=== PATIENT | female | born 1950 | race Caucasian/White ===

== ENCOUNTER → 2016-12-12 | Outpatient (CLI) | payer BC ==
[~2016-12-12] MED LIST: ALENDRONATE SOD70 M1 PO; CLARITIN10 MG PO; LOSARTAN POTASS1 TA4 PO; LOSARTAN POTASS1 TA6 PO; MEDROL DOSEPAK4 MG PO; MELOXICAM15 MG PO; MOTRIN800 MG PO; PLAQUENIL200 MG PO; SIMVASTATIN40 MG PO; TOPROL XL50 M1 PO
[2016-12-12 07:17] LABS: BASO # 0.1 10*3/uL (0.0-0.1); BASO % 0.6 % (0.0-1.0); EOS # 0.3 10*3/uL (0.0-0.4); EOS % 3.6 % (1.0-4.0); HEMATOCRIT 39.4 % (37.0-47.0); HEMOGLOBIN 13.4 g/dl (12.0-16.0); IG # 0.1 10*3/uL (0.0-0.1); LYMPH # 1.9 10*3/uL (1.3-4.4); LYMPH % 24.3 % (27.0-41.0); MEAN CELL VOLUME 91.2 fl (81.0-99.0); MEAN PLATELET VOLUME 8.7 fl (9.6-12.3); MONO # 0.6 10*3/uL (0.1-1.0); MONO % 7.6 % (3.0-9.0); NEUT % 63.3 % (47.0-73.0); PLATELET COUNT AUTOMATED 315 10*3/uL (130-400); RED BLOOD COUNT 4.32 10*6/uL (4.10-5.10); RED CELL DISTRI WIDTH 12.6 % (0-14.5)
[2016-12-12 07:52] LABS: ALBUMIN 3.6 gm/dl (3.1-4.5); ALKALINE PHOSPHATASE 67 U/L (45-117); BILIRUBIN, TOTAL 0.5 mg/dl (0.2-1.0); BUN 8 mg/dl (7-24); CARBON DIOXIDE 29 mmol/L (21-32); CHLORIDE 102 mmol/L (98-107); CHOLESTEROL 166 mg/dL (<200); EST GLOM FILT AFRICAN AMERICAN > 60 ml/min; GLUCOSE 88 mg/dL (65-99); HDL CHOLESTEROL 77 mg/dl (40-60); LDL CHOLESTEROL 62 mg/dL (9-159); POTASSIUM 3.6 mmol/L (3.5-5.1); SGOT/AST 24 IU/L (3-35); SGPT/ALT 35 U/L (12-78); SODIUM 138 mmol/L (136-145); TOTAL PROTEIN 7.4 gm/dL (6.4-8.2); TRIGLYCERIDES 135 mg/dl (<150); VLDL CHOLESTEROL 27 mg/dL (6-40)
== END | disposition home or self-care (01) ==
LOC: LAB 07:01
PROVIDERS: Family Medicine
DX: J90 Pleural effusion, not elsewhere classified (principal); R91.8 Other nonspecific abnormal finding of lung field; M17.11 Unilateral primary osteoarthritis, right knee; M25.461 Effusion, right knee; E78.5 Hyperlipidemia, unspecified; M81.0 Age-related osteoporosis without current pathological fracture; I10 Essential (primary) hypertension; M47.894 Other spondylosis, thoracic region; Q25.46 Tortuous aortic arch; M76.9 Unspecified enthesopathy, lower limb, excluding foot

== ENCOUNTER 2016-12-27 14:41 | Inpatient (IN) | payer BC, MEDICARE ==
[~2016-12-27] VITALS: Ht 157.5 cm; Wt 87.3 kg
--- NOTE | ~2016-12-27 | DS ---
[place], [place] DISCHARGE SUMMARY NAME: BEN HILTON [facility] #: [id number] UNIT #: [id number] ROOM: 427 DOCTOR: TIM RAMOS MD BIRTHDATE: [birth year] DOS: 12/29/2016 HOSPITAL COURSE: The patient has been admitted to the hospital with chronic cough, shortness of breath, edema of the leg, ASHD, hypertension, hyperlipidemia, osteoporosis, osteoarthritis, lymphopenia, elevated C-reactive protein, hyponatremia, hypokalemia, hypochloremia, and hyperglycemia. The patient is feeling much better. She says she is not having much cough now and she denies any difficulty in breathing. She is ambulating good. There is no chest pain, no difficulty in breathing. The patient had an ultrasound of the thyroid done yesterday, which showed borderline enlarged heterogeneously thyroid gland without evidence of discrete nodules or calcification. Her blood pressure is 170/64, pulse ____, respiration 20, and temperature 97.3. The patient was treated with her home medications and she received hydrocortisone 10 mg twice daily, ____ with albuterol every 6 hours p.r.n., ____ sodium 1 g daily IV, and azithromycin 500 mg IV twice daily. The patient ____. She has been given antibiotic to take at home, Levaquin 500 mg daily and ____ 3 times daily and she will continue taking her home medications. I will see her in the office next week. TIM RAMOS MD CM:AZEEM [id number] TIM RAMOS MD 12/29/16 1118 interface
--- NOTE | ~2016-12-27 | PR ---
[place], [place] PROGRESS NOTE NAME: BEN HILTON [facility] #: [id number] UNIT #: [id number] ROOM: 427 DOCTOR: TIM RAMOS MD BIRTHDATE: [birth year] DOS: 12/28/2016 SUBJECTIVE: This is a patient who has been admitted to hospital with chronic cough, which she is having for the last 8 months, has been treated by various antibiotics and other things. Her chest x-ray showed slight pneumonic infiltration before, which was clear later on and she does not bring any sputum. She is not having any chest pain, no difficulty in breathing, just dry cough, which is quite irritating to her and she came to the Emergency Department where she had a chest x-ray done, which did not show any abnormality and she had CT of the chest done, which showed no cardiopulmonary pathology, except some enlargement of the thyroid gland. The patient has past history of hypertension, hyperlipidemia, osteoarthritis, osteoporosis and sigmoid polyp. She has history of cataract surgery done, tubal ligation, tonsillectomy and breast biopsy. The patient's troponin level on 2 different occasions is normal and CBC today showed white count 10.3, hemoglobin 11.7, hematocrit 33.7. Basic metabolic profile is showing calcium 8.4. Other values are normal. Cholesterol is 129, HDL 63, which is good. LDL and VLDL ____ triglycerides are elevated to 155, not too much. Hemoglobin A1c is 5.9. Vitamin B12 of 431, folic acid 22.9 and vitamin D is 76.8. OBJECTIVE: VITAL SIGNS: Her blood pressure is 125/68, pulse is 99, respirations 20, temperature 98.5. CHEST: Clear. HEART: Regular. ABDOMEN: Soft. GENERAL: The patient is not in any acute distress. TIM RAMOS MD CM:PNTRANS [id number] TIM RAMOS MD 12/29/16 0203 interface
[2016-12-27 14:41] VITALS: BP 142/81
[~2016-12-27 14:41] MED LIST changes: +PRAVACHOL40 MG PO; -SIMVASTATIN40 MG PO
[2016-12-27 15:15] LABS: BASO # 0.1 10*3/uL (0.0-0.1); BASO % 0.7 % (0.0-1.0); EOS # 0.4 10*3/uL (0.0-0.4); EOS % 3.9 % (1.0-4.0); HEMATOCRIT 35.5 % (37.0-47.0); HEMOGLOBIN 12.5 g/dl (12.0-16.0); IG # 0.1 10*3/uL (0.0-0.1); LYMPH # 2.4 10*3/uL (1.3-4.4); LYMPH % 26.5 % (27.0-41.0); MEAN CELL VOLUME 90.8 fl (81.0-99.0); MEAN CORPUSCULAR HGB CONC 35.2 g/dl (33.0-37.0); MEAN PLATELET VOLUME 9.1 fl (9.6-12.3); MONO # 0.7 10*3/uL (0.1-1.0); MONO % 7.7 % (3.0-9.0); NEUT # 5.5 10*3/uL (2.3-7.9); NEUT % 60.5 % (47.0-73.0); PLATELET COUNT AUTOMATED 313 10*3/uL (130-400); RED BLOOD COUNT 3.91 10*6/uL (4.10-5.10); RED CELL DISTRI WIDTH 12.6 % (0-14.5)
[2016-12-27 15:24] LABS: PROTHROMBIN TIME 10.1 SECONDS (9.0-12.4)
[2016-12-27 15:27] LABS: C-REACTIVE PROTEIN 0.96 MG/DL (0-0.3)
[2016-12-27 15:33] LABS: ALBUMIN 3.8 gm/dl (3.1-4.5); ALKALINE PHOSPHATASE 81 U/L (45-117); BILIRUBIN, TOTAL 0.4 mg/dl (0.2-1.0); BUN 8 mg/dl (7-24); CARBON DIOXIDE 27 mmol/L (21-32); CHLORIDE 94 mmol/L (98-107); EST GLOM FILT AFRICAN AMERICAN > 60 ml/min; GLUCOSE 108 mg/dL (65-99); MAGNESIUM 1.6 mg/dL (1.5-2.1); POTASSIUM 3.3 mmol/L (3.5-5.1); SGOT/AST 29 IU/L (3-35); SGPT/ALT 35 U/L (12-78); SODIUM 132 mmol/L (136-145); TOTAL PROTEIN 7.2 gm/dL (6.4-8.2)
[2016-12-27 15:34] LABS: TROPONIN I < 0.015 ng/ml (<0.045)
[2016-12-27 16:56] VITALS: BP 138/76
[2016-12-27] MEDS ORDERED: AMLODIPINE BESY1 TAB PO (17:42)
[2016-12-27] MEDS ORDERED: FEXOFENADINE H180 M1 PO (17:43)
[2016-12-27] MEDS ORDERED: CETIRIZINE10 MG PO (17:43)
[2016-12-27] MEDS ORDERED: ASPIRIN CHEWABL81 MG PO (17:44)
[2016-12-27] MEDS ORDERED: CALCIUM 600600 M2 PO (17:44)
[2016-12-27] MEDS ORDERED: PRILOSEC20 M1 PO (17:45)
[2016-12-27] MEDS ORDERED: FISH OIL 1,001000 MG PO (17:45)
[2016-12-27] MEDS ORDERED: MULTI VITAMINS1 TAB PO (17:45)
[2016-12-27 18:00] VITALS: BP 131/68
[2016-12-27 20:00] VITALS: BP 119/65
[2016-12-28] VITALS: BP 111/49
[2016-12-28 05:56] LABS: BASO # 0.1 10*3/uL (0.0-0.1); BASO % 0.7 % (0.0-1.0); EOS # 0.2 10*3/uL (0.0-0.4); HEMATOCRIT 33.7 % (37.0-47.0); HEMOGLOBIN 11.5 g/dl (12.0-16.0); LYMPH # 2.2 10*3/uL (1.3-4.4); LYMPH % 29.6 % (27.0-41.0); MEAN CELL VOLUME 92.3 fl (81.0-99.0); MEAN CORPUSCULAR HGB 31.5 pg (27.0-31.0); MEAN CORPUSCULAR HGB CONC 34.1 g/dl (33.0-37.0); MEAN PLATELET VOLUME 9.3 fl (9.6-12.3); MONO # 0.6 10*3/uL (0.1-1.0); MONO % 7.8 % (3.0-9.0); NEUT # 4.3 10*3/uL (2.3-7.9); NEUT % 58.4 % (47.0-73.0); PLATELET COUNT AUTOMATED 268 10*3/uL (130-400); RED BLOOD COUNT 3.65 10*6/uL (4.10-5.10); RED CELL DISTRI WIDTH 12.7 % (0-14.5); WHITE BLOOD COUNT 7.3 10*3/uL (4.8-10.8)
[2016-12-28 06:21] LABS: BUN 9 mg/dl (7-24); CARBON DIOXIDE 28 mmol/L (21-32); CHLORIDE 102 mmol/L (98-107); CHOLESTEROL 129 mg/dL (<200); EST GLOM FILT AFRICAN AMERICAN > 60 ml/min; GLUCOSE 98 mg/dL (65-99); HDL CHOLESTEROL 63 mg/dl (40-60); LDL CHOLESTEROL 35 mg/dL (9-159); MAGNESIUM 1.6 mg/dL (1.5-2.1); PHOSPHOROUS 2.5 mg/dL (2.5-4.9); POTASSIUM 3.5 mmol/L (3.5-5.1); SODIUM 139 mmol/L (136-145); TRIGLYCERIDES 155 mg/dl (<150); VLDL CHOLESTEROL 31 mg/dL (6-40)
[2016-12-28 06:52] LABS: HEMOGLOBIN A1c 5.9 % (4.8-5.6)
[2016-12-28 08:00] VITALS: BP 125/68
[2016-12-28 09:29] LABS: FOLIC ACID 22.92 ng/mL (>5.38); VITAMIN D, 25-HYDROXY 76.8 ng/mL (30-100)
[2016-12-28 12:00] VITALS: BP 135/72
[2016-12-28 16:00] VITALS: BP 129/86
[2016-12-28 20:00] VITALS: BP 119/56
[2016-12-29] VITALS: BP 117/64
== END 2016-12-29 09:10 | disposition home or self-care (01) | DRG 644 ==
LOC: ED 14:41 → EDHOLD 16:24 → 4E 16:24
PROVIDERS: Emergency Medicine; Internal Medicine
DX: E04.9 Nontoxic goiter, unspecified (principal); E87.1 Hypo-osmolality and hyponatremia; E87.8 Other disorders of electrolyte and fluid balance, not elsewhere classified; I10 Essential (primary) hypertension; I25.10 Atherosclerotic heart disease of native coronary artery without angina pectoris; E78.5 Hyperlipidemia, unspecified; M19.90 Unspecified osteoarthritis, unspecified site; M81.0 Age-related osteoporosis without current pathological fracture; D72.810 Lymphocytopenia; E87.6 Hypokalemia; R73.9 Hyperglycemia, unspecified; R60.0 Localized edema; Z96.1 Presence of intraocular lens; Z82.49 Family history of ischemic heart disease and other diseases of the circulatory system; Z79.899 Other long term (current) drug therapy; Z90.49 Acquired absence of other specified parts of digestive tract; Z98.41 Cataract extraction status, right eye; Z83.3 Family history of diabetes mellitus; Z82.3 Family history of stroke; Z81.1 Family history of alcohol abuse and dependence

== ENCOUNTER → 2017-01-09 | Outpatient (CLI) | payer OTHER ==
[~2017-01-09] MED LIST changes: +AMLODIPINE BESY1 TAB PO; +ASPIRIN CHEWABL81 MG PO; +CALCIUM 600600 M2 PO; +CETIRIZINE10 MG PO; +FEXOFENADINE H180 M1 PO; +FISH OIL 1,001000 MG PO; +MULTI VITAMINS1 TAB PO; +PRILOSEC20 M1 PO
--- NOTE | ~2017-01-09 | PF ---
[place], [place] PULMONARY FUNCTION TEST NAME: BEN HILTON UNIT #: [id number] ROOM: DOCTOR: ELMO ALDRICH MD,SAMUEL BIRTHDATE: [birth year] DOS: 01/09/2017 REQUESTING PHYSICIAN: Macarena Loja DO. HISTORY: The patient is noted as 67-year-old female, height of 62 inches, weight 187 pounds. The patient reported symptoms of nonproductive cough with rare wheezing and dyspnea with exertion. The testing was done on the patient for assessment of possibly reactive airway disease after exposure. SPIROMETRY: The FVC was recorded at 2.30 liters, 81% predicted value normal. FEV1 was noted at 1.79 liters, 84% predicted value. The ratio of FEV1/FVC was recorded 78%. There was no significant postbronchodilator improvement noted. Flow volume loop for the patient was noted as mild obstructive airway pattern. The patient's lung volumes, thoracic gas volume recorded as 57%, residual volume of 55%, total lung capacity of 69%. The lung volume for this patient was noted with evidence of moderate restrictive lung disease of unclear etiology. The patient's lung diffusion recorded 55% without correction of carbon monoxide hemoglobin value. The patient's airway resistance and passive conductance were noted normal. FINAL IMPRESSION: 1. Evidence of moderate restrictive lung disease to be correlated to the patient's clinical history and with the radiology data. 2. Moderate reduction of the lung diffusion was also noted to be correlated to the patient's hemoglobin value and clinical history and radiology data as well. SAMUEL BORREGO MD CM:PFREPORT:PULMONARY FUNCTION TEST [id number] SAMUEL ALDRICH MD
== END | disposition home or self-care (01) ==
LOC: CP 07:50
DX: J45.909 Unspecified asthma, uncomplicated (principal)

== ENCOUNTER → 2017-01-14 | Outpatient (CLI) | payer BC ==
[~2017-01-14] MED LIST changes: +BREO ELLIPTA 21 EACH PO; +VIT D3 PO
== END | disposition home or self-care (01) ==
LOC: CARD 04:37
DX: R07.2 Precordial pain (principal)

== ENCOUNTER → 2017-04-11 | Outpatient (CLI) | payer BC | END | disposition home or self-care (01) | LOC: US 07:40 | DX: E04.9 Nontoxic goiter, unspecified (principal); R05 Cough ==

== ENCOUNTER → 2017-09-22 | Outpatient (CLI) | payer BC | END | disposition home or self-care (01) | LOC: ORTHO 00:19 | DX: M17.11 Unilateral primary osteoarthritis, right knee (principal) ==

== ENCOUNTER → 2017-10-14 | Outpatient (CLI) | payer OTHER | END | disposition home or self-care (01) | LOC: MAMMO 15:01 | DX: Z12.31 Encounter for screening mammogram for malignant neoplasm of breast (principal) ==

== ENCOUNTER → 2017-12-10 | Outpatient (CLI) | payer OTHER | END | disposition home or self-care (01) | LOC: RAD 15:24 | DX: R05 Cough (principal); I10 Essential (primary) hypertension ==

== ENCOUNTER → 2018-10-15 | Outpatient (CLI) | payer OTHER | END | disposition home or self-care (01) | LOC: MAMMO 13:57 | DX: Z12.31 Encounter for screening mammogram for malignant neoplasm of breast (principal) ==

== ENCOUNTER → 2019-03-11 | Day surgery (SDC) | payer OTHER ==
[~2019-03-11] VITALS: Ht 154.9 cm; Wt 78.9 kg
[~2019-03-11] MED LIST changes: +MELATONIN5 M6 PO; +OMEPRAZOLE40 MG PO
--- NOTE | ~2019-03-11 | PROC NOTE ---
[place], [place] PROCEDURE NOTE [id number] UNIT #: [id number] ROOM: DOCTOR: OJSE JUDD MD BIRTHDATE: [birth year] DOS: 03/11/2019 PREOPERATIVE DIAGNOSIS: History of hyperplastic polyp in sigmoid colon. POSTOPERATIVE DIAGNOSIS: Mild sigmoid diverticulosis. PROCEDURE: Colonoscopy. ENDOSCOPIST: Jose Judd MD STEAMTABLE ATTENDANT RAILROAD: BROWN. ANESTHESIA: MAC. INDICATIONS: This is a 69-year-old lady here for a colonoscopy with a history of previous hyperplastic polyp removed from the sigmoid colon approximately 5 years ago. The procedure and its complications were explained to the patient in detail preoperatively. Complications that were discussed included, but were not limited to bleeding, missed lesions, colon perforation, and prolonged pain. She agreed to proceed. DESCRIPTION OF PROCEDURE: After identifying the patient, the patient was brought to the endoscopy suite and placed in the left lateral position. After IV sedation was administered, a time-out procedure was called and a digital rectal exam was performed. This was within normal limits. An adult colonoscope was now introduced into the anal canal and advanced sequentially into the rectum, sigmoid colon, descending colon, transverse colon, and ascending colon up to the cecum. Upon reaching the cecum, the scope was withdrawn. The prep was found to be optimal. The entirety of the colon was visualized and there were no polyps seen. There was mild sigmoid diverticulosis in the sigmoid colon, which was uncomplicated. Upon withdrawal of the scope, the patient was brought back to the recovery room in stable fashion. There were no complications. Based on these findings, the patient is recommended to have another colonoscopy only if she has any symptoms in the future. These findings were discussed with the patient's daughter in the recovery room and will be discussed with the patient herself in the office in the subsequent weeks. Jose Judd MD CM:PROCNOTE:PROCEDURE NOTE [id number] JOSE JUDD MD
[2019-03-11 10:30] VITALS: BP 136/50
[2019-03-11 10:45] VITALS: BP 125/73; BP 136/67
[2019-03-11 11:00] VITALS: BP 136/69
== END | disposition home or self-care (01) ==
LOC: SDC 03-08 13:15
DX: Z12.11 Encounter for screening for malignant neoplasm of colon (principal); Z86.010 Personal history of colon polyps; K57.30 Diverticulosis of large intestine without perforation or abscess without bleeding; I10 Essential (primary) hypertension; E78.00 Pure hypercholesterolemia, unspecified; J45.909 Unspecified asthma, uncomplicated; M19.90 Unspecified osteoarthritis, unspecified site; Z98.41 Cataract extraction status, right eye; Z98.42 Cataract extraction status, left eye; Z98.51 Tubal ligation status; Z98.890 Other specified postprocedural states; Z79.899 Other long term (current) drug therapy; Z79.82 Long term (current) use of aspirin; Z82.49 Family history of ischemic heart disease and other diseases of the circulatory system; Z83.3 Family history of diabetes mellitus
CPT/HCPCS: 00812; G0105

== ENCOUNTER → 2019-12-14 | Outpatient (CLI) | payer OTHER ==
[2019-12-15 06:10] LABS: HEP B CORE AB, IGM Negative (Negative); HEPATITIS B SURFACE AG Negative (Negative); HEPATITIS C VIRUS ANTIBODY <0.1 s/co (0.0-0.9)
== END | disposition home or self-care (01) ==
LOC: LAB 08:57 → US 09:30
PROVIDERS: Internal Medicine
DX: K76.0 Fatty (change of) liver, not elsewhere classified (principal); R74.8 Abnormal levels of other serum enzymes; R53.83 Other fatigue

== ENCOUNTER → 2019-12-23 | Outpatient (CLI) | payer OTHER | END | disposition home or self-care (01) | LOC: MAMMO 10:30 | DX: Z12.31 Encounter for screening mammogram for malignant neoplasm of breast (principal) ==

== ENCOUNTER → 2020-04-14 | Outpatient (CLI) | payer OTHER | END | disposition home or self-care (01) | LOC: US 13:03 | PROVIDERS: ATTEND Nurse Practitioner Women's Health | DX: N85.8 Other specified noninflammatory disorders of uterus (principal) ==

== ENCOUNTER 2020-06-05 14:15 | Emergency (ER) | payer OTHER ==
[~2020-06-05] VITALS: Wt 78.0 kg
[2020-06-05 14:33] VITALS: BP 162/70
== END 2020-06-05 16:21 | disposition left against medical advice (07) ==
LOC: ED 14:15
DX: R20.0 Anesthesia of skin (principal); Z53.21 Procedure and treatment not carried out due to patient leaving prior to being seen by health care provider

== ENCOUNTER 2020-07-20 13:30 | Emergency (ER) | payer OTHER ==
[~2020-07-20] VITALS: Ht 154.9 cm; Wt 78.0 kg
[2020-07-20 13:36] VITALS: BP 137/80
[2020-07-20] MEDS ORDERED: Meclizine25 MG PO (14:41)
[2020-07-20] MEDS ORDERED: ZOFRAN4 MG PO (14:58)
== END 2020-07-20 15:15 | disposition home or self-care (01) ==
LOC: ED 13:30
DX: H81.11 Benign paroxysmal vertigo, right ear (principal); M19.90 Unspecified osteoarthritis, unspecified site; I10 Essential (primary) hypertension; E78.00 Pure hypercholesterolemia, unspecified; Z79.899 Other long term (current) drug therapy; Z98.51 Tubal ligation status; Z98.890 Other specified postprocedural states

== ENCOUNTER → 2020-12-25 | Outpatient (CLI) | payer OTHER ==
[~2020-12-25] MED LIST changes: +Meclizine25 MG PO; +ZOFRAN4 MG PO
== END | disposition home or self-care (01) ==
LOC: MAMMO 11:05
PROVIDERS: ATTEND Internal Medicine
DX: Z12.31 Encounter for screening mammogram for malignant neoplasm of breast (principal); N64.89 Other specified disorders of breast

== ENCOUNTER → 2021-04-30 | Outpatient (CLI) | payer OTHER | END | disposition home or self-care (01) | LOC: ORTHO 00:37 | PROVIDERS: ATTEND Orthopaedic Surgery | DX: S42.134D Nondisplaced fracture of coracoid process, right shoulder, subsequent encounter for fracture with routine healing (principal); M19.011 Primary osteoarthritis, right shoulder; X58.XXXD Exposure to other specified factors, subsequent encounter ==

== ENCOUNTER → 2021-05-14 | Outpatient (CLI) | payer OTHER | END | disposition home or self-care (01) | LOC: MRI 11:00 | PROVIDERS: ATTEND Orthopaedic Surgery | DX: M75.121 Complete rotator cuff tear or rupture of right shoulder, not specified as traumatic (principal); M25.811 Other specified joint disorders, right shoulder ==

== ENCOUNTER → 2021-06-11 | Outpatient (CLI) | payer MEDICARE ==
[~2021-06-11] MED LIST changes: +HYDROCHLOROTH12.5 M2 PO
[2021-06-11 13:18] LABS: BASO # 0.1 10*3/uL (0.0-0.1); BASO % 0.5 % (0.0-1.0); EOS # 0.1 10*3/uL (0.0-0.4); EOS % 0.6 % (1.0-4.0); LYMPH # 3.4 10*3/uL (1.3-4.4); LYMPH % 28.9 % (27.0-41.0); MEAN CELL VOLUME 90.9 fl (81.0-99.0); MEAN CORPUSCULAR HGB 30.5 pg (27.0-31.0); MEAN CORPUSCULAR HGB CONC 33.6 g/dl (33.0-37.0); MEAN PLATELET VOLUME 9.8 fl (9.6-12.3); MONO # 0.8 10*3/uL (0.1-1.0); MONO % 6.4 % (3.0-9.0); NEUT # 7.5 10*3/uL (2.3-7.9); NEUT % 63.1 % (47.0-73.0); PLATELET COUNT AUTOMATED 370 10*3/uL (130-400); RED BLOOD COUNT 4.95 10*6/uL (4.10-5.10); RED CELL DISTRI WIDTH 12.9 % (0-14.5); WHITE BLOOD COUNT 11.8 10*3/uL (4.8-10.8)
[2021-06-11 13:33] LABS: BUN 13 mg/dl (7-24); CHLORIDE 99 mmol/L (98-107); CREATININE 0.87 mg/dL (0.55-1.02); POTASSIUM 3.4 mmol/L (3.5-5.1); SODIUM 139 mmol/L (136-145)
[2021-06-11 13:38] LABS: FREE T4 1.21 ng/dl (0.76-1.46); IRON 104 ug/dL (50-170); TOTAL IRON BINDING CAPACITY 384 ug/dl (250-450)
[2021-06-11 13:43] LABS: FERRITIN 116.2 ng/mL (10.0-291.0)
== END | disposition home or self-care (01) ==
LOC: LAB 11:24
PROVIDERS: ATTEND Internal Medicine
DX: I10 Essential (primary) hypertension (principal); G25.81 Restless legs syndrome; E78.5 Hyperlipidemia, unspecified; M25.50 Pain in unspecified joint

== ENCOUNTER 2021-06-14 01:09 | Observation (INO) | payer MEDICARE ==
[2021-06-11 12:18] VITALS: BP 149/73
[2021-06-14] VITALS (10 sets, daily range): BP systolic 116–141; BP diastolic 52–72
[~2021-06-14] VITALS: Ht 154.9 cm; Wt 81.6 kg
[2021-06-14] MEDS ORDERED: HYDROCODONE-AC1 EAC1 PO (13:55)
[2021-06-15] VITALS: BP 145/60
== END 2021-06-15 11:40 | disposition home or self-care (01) ==
LOC: SDC 01:09 → 4E 18:59
PROVIDERS: ADMIT Internal Medicine; ATTEND Internal Medicine
DX: M19.011 Primary osteoarthritis, right shoulder (principal); M25.811 Other specified joint disorders, right shoulder; M75.101 Unspecified rotator cuff tear or rupture of right shoulder, not specified as traumatic; S43.081D Other subluxation of right shoulder joint, subsequent encounter; Z20.822 Contact with and (suspected) exposure to COVID-19; R09.02 Hypoxemia; J98.11 Atelectasis; G58.8 Other specified mononeuropathies; X58.XXXA Exposure to other specified factors, initial encounter; Y92.89 Other specified places as the place of occurrence of the external cause; Y93.89 Activity, other specified; Y99.8 Other external cause status

== ENCOUNTER → 2021-07-27 | Outpatient (CLI) | payer MEDICARE ==
[~2021-07-27] MED LIST changes: +HYDROCODONE-AC1 EAC1 PO
== END | disposition home or self-care (01) ==
LOC: RAD 13:16
PROVIDERS: ATTEND Orthopaedic Surgery
DX: M25.711 Osteophyte, right shoulder (principal); M19.011 Primary osteoarthritis, right shoulder; M25.511 Pain in right shoulder; G56.03 Carpal tunnel syndrome, bilateral upper limbs

== ENCOUNTER → 2022-01-03 | Outpatient (CLI) | payer MEDICARE | END | disposition home or self-care (01) | LOC: MAMMO 12:43 | PROVIDERS: ATTEND Internal Medicine | DX: Z12.31 Encounter for screening mammogram for malignant neoplasm of breast (principal); M81.0 Age-related osteoporosis without current pathological fracture ==

== ENCOUNTER → 2022-02-13 | Outpatient (CLI) | payer MEDICARE | END | disposition home or self-care (01) | LOC: ORTHO 02:02 | PROVIDERS: ATTEND Orthopaedic Surgery | DX: M17.11 Unilateral primary osteoarthritis, right knee (principal) ==

== ENCOUNTER → 2022-03-13 | Outpatient (CLI) | payer MEDICARE | END | disposition home or self-care (01) | LOC: CT 12:39 | PROVIDERS: ATTEND Specialist | DX: H74.8X2 Other specified disorders of left middle ear and mastoid (principal); H71.02 Cholesteatoma of attic, left ear ==

== ENCOUNTER → 2022-09-04 | Outpatient (CLI) | payer MEDICARE ==
[2022-09-04 10:21] LABS: BASO % 0.2 % (0.0-1.0); EOS % 0.1 % (1.0-4.0); HEMATOCRIT 43.6 % (37.0-47.0); LYMPH # 2.4 10*3/uL (1.3-4.4); LYMPH % 18.9 % (27.0-41.0); MEAN CELL VOLUME 92.4 fl (81.0-99.0); MEAN CORPUSCULAR HGB 31.6 pg (27.0-31.0); MEAN CORPUSCULAR HGB CONC 34.2 g/dl (33.0-37.0); MEAN PLATELET VOLUME 9.8 fl (9.6-12.3); MONO # 0.7 10*3/uL (0.1-1.0); MONO % 5.4 % (3.0-9.0); NEUT # 9.3 10*3/uL (2.3-7.9); NEUT % 73.6 % (47.0-73.0); PLATELET COUNT AUTOMATED 391 10*3/uL (130-400); RED BLOOD COUNT 4.72 10*6/uL (4.10-5.10); RED CELL DISTRI WIDTH 12.6 % (0-14.5); WHITE BLOOD COUNT 12.6 10*3/uL (4.8-10.8)
[2022-09-04 10:45] LABS: ALKALINE PHOSPHATASE 54 U/L (46-116); BUN 8 mg/dl (9-23); CHLORIDE 94 mmol/L (98-107); CHOLESTEROL 129 mg/dL (<200); FREE T4 1.45 ng/dl (0.89-1.76); LDL CHOLESTEROL 55 mg/dL (9-159); SGPT/ALT 31 U/L (10-49); THYROID STIM HORMONE (HS) 1.056 uIU/ml (0.550-4.780); TOTAL PROTEIN 7.9 gm/dL (6.0-8.0); TRIGLYCERIDES 82 mg/dl (<150)
[2022-09-04 11:16] LABS: VITAMIN D, 25-HYDROXY 66.4 ng/mL (30-100)
== END | disposition home or self-care (01) ==
LOC: LAB 09:47
PROVIDERS: ATTEND Internal Medicine
DX: I10 Essential (primary) hypertension (principal); E55.9 Vitamin D deficiency, unspecified

== ENCOUNTER → 2022-09-19 | Outpatient (CLI) | payer MEDICARE | END | disposition home or self-care (01) | LOC: RAD 14:04 | PROVIDERS: ATTEND Internal Medicine | DX: J43.9 Emphysema, unspecified (principal) ==

== ENCOUNTER → 2022-11-14 | Outpatient (CLI) | payer MEDICARE | END | disposition home or self-care (01) | LOC: CT 12:49 | PROVIDERS: ATTEND Internal Medicine | DX: R91.1 Solitary pulmonary nodule (principal); I25.10 Atherosclerotic heart disease of native coronary artery without angina pectoris; K76.0 Fatty (change of) liver, not elsewhere classified ==

== ENCOUNTER → 2023-04-14 | Outpatient (CLI) | payer MEDICARE | END | disposition home or self-care (01) | LOC: MAMMO 00:07 | PROVIDERS: ATTEND Internal Medicine | DX: Z12.31 Encounter for screening mammogram for malignant neoplasm of breast (principal) ==

== ENCOUNTER → 2023-12-24 | Outpatient (CLI) | payer MEDICARE ==
[2023-12-24 09:56] LABS: BASO % 0.1 % (0.0-1.0); EOS % 0.1 % (1.0-4.0); HEMATOCRIT 43.7 % (37.0-47.0); LYMPH # 1.3 10*3/uL (1.3-4.4); LYMPH % 18.4 % (27.0-41.0); MEAN CELL VOLUME 88.8 fl (81.0-99.0); MEAN CORPUSCULAR HGB 30.9 pg (27.0-31.0); MEAN CORPUSCULAR HGB CONC 34.8 g/dl (33.0-37.0); MONO # 0.2 10*3/uL (0.1-1.0); NEUT # 5.6 10*3/uL (2.3-7.9); NEUT % 77.2 % (47.0-73.0); PLATELET COUNT AUTOMATED 379 10*3/uL (130-400); RED BLOOD COUNT 4.92 10*6/uL (4.10-5.10); WHITE BLOOD COUNT 7.2 10*3/uL (4.8-10.8)
[2023-12-24 10:56] LABS: ALKALINE PHOSPHATASE 52 U/L (46-116); BUN 10 mg/dl (9-23); CHLORIDE 93 mmol/L (98-107); CHOLESTEROL 152 mg/dL (<200); FREE T4 1.36 ng/dl (0.89-1.76); LDL CHOLESTEROL 69 mg/dL (9-159); POTASSIUM 2.9 mmol/L (3.4-5.1); SGPT/ALT 26 U/L (5-49); TOTAL PROTEIN 8.2 gm/dL (6.0-8.0); TRIGLYCERIDES 80 mg/dl (<150); VITAMIN D, 25-HYDROXY 71.2 ng/mL (30-100)
== END | disposition home or self-care (01) ==
LOC: LAB 09:36
PROVIDERS: ATTEND Internal Medicine
DX: Z11.59 Encounter for screening for other viral diseases (principal); I10 Essential (primary) hypertension

== ENCOUNTER → 2024-09-23 | Outpatient (CLI) | payer MEDICARE | END | disposition home or self-care (01) | LOC: MAMMO 02:58 | PROVIDERS: ATTEND Internal Medicine | DX: Z12.31 Encounter for screening mammogram for malignant neoplasm of breast (principal); R92.30 Dense breasts, unspecified; R92.1 Mammographic calcification found on diagnostic imaging of breast ==

== ENCOUNTER → 2025-03-23 | Outpatient (CLI) | payer MEDICARE ==
[2025-03-23 13:19] LABS: BASO # 0.1 10*3/uL (0.0-0.1); BASO % 0.7 % (0.0-1.0); EOS # 0.0 10*3/uL (0.0-0.4); EOS % 0.3 % (1.0-4.0); MEAN CELL VOLUME 94.4 fl (81.0-99.0); MEAN CORPUSCULAR HGB 33.1 pg (27.0-31.0); MEAN PLATELET VOLUME 9.7 fl (9.6-12.3); MONO # 0.8 10*3/uL (0.1-1.0); MONO % 10.7 % (3.0-9.0); NEUT # 4.2 10*3/uL (2.3-7.9); NEUT % 54.4 % (47.0-73.0); NUCLEATED RED BLOOD CELL 0.0 % (0.0-0.0); NUCLEATED RED BLOOD CELL 0.0 10*3/uL (0.0-0.0); PLATELET COUNT AUTOMATED 331 10*3/uL (130-400); RED CELL DISTRI WIDTH 11.9 % (0-14.5)
[2025-03-23 13:49] LABS: BUN 8 mg/dl (9-23); FREE T4 1.50 ng/dl (0.89-1.76); LDL CHOLESTEROL 68 mg/dL (9-159); SGPT/ALT 54 U/L (5-49); VITAMIN D, 25-HYDROXY 75.9 ng/mL (30-100)
== END | disposition home or self-care (01) ==
LOC: LAB 12:26
PROVIDERS: ATTEND Internal Medicine
DX: I10 Essential (primary) hypertension (principal); E55.9 Vitamin D deficiency, unspecified

== ENCOUNTER → 2025-04-08 | Outpatient (CLI) | payer MEDICARE | END | disposition home or self-care (01) | LOC: ORTHO 01:44 | PROVIDERS: ATTEND Orthopaedic Surgery | DX: M25.512 Pain in left shoulder (principal) ==